=== PATIENT | male | born 1940 | race African-American/Black ===

== ENCOUNTER 2019-01-08 15:58 | Outpatient (CLI) | payer MEDICARE, BC ==
--- NOTE | 2019-01-08 16:13 | RAD ---
EXAM: XR Cerv Sp Ap Lat STANDARD PROVIDED CLINICAL HISTORY: Neck pain. COMPARISON: None FINDINGS: C1 to the cervicothoracic junction is seen on the lateral view. Scattered osteophytes are seen in the cervical spine. The vertebral heights are within normal limits. There is minimal narrowing of the C4-5 intervertebral disc space. No fracture or subluxation is seen involving the cervical spine. Ther e is no abnormal translational motion seen between the flexion and extension views. 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 No subluxation is seen.
== END 2019-01-08 15:59 | disposition home or self-care (01) ==
LOC: TBSIIMAG 15:58
PROVIDERS: ATTEND Neurological Surgery
DX: M54.2 Cervicalgia (principal); M47.812 Spondylosis without myelopathy or radiculopathy, cervical region
CPT/HCPCS: 72040